=== PATIENT | female | born 1935 | race Caucasian/White ===

== ENCOUNTER 2018-01-20 12:57 | Inpatient (IN) | payer OTHER ==
[~2018-01-20] VITALS: Ht 162.6 cm; Wt 100.0 kg
[~2018-01-20 12:57] MED LIST: ALBUAER3 IN; ALLO100T PO; AML5T PO; ASPI81CH43 PO; DICY20TA66 PO; ESTR1TAB3 PO; ESTR1TAB5 PO; FLU05NSL; HYDR12.56 PO; HYDR50TA15 PO; LATA0.0015; LEVO200T46 PO; LOS50T PO; LOVA40TA46 PO; LOVA40TA72 PO; MET10T PO; METO-169 PO; METO-281 PO; MONT10TA34 PO; PANT1INJ3 PO; PANTOPRAZOLE; TIMO0.5S32; [UNRECOGNIZED DRUG - CODE]; [UNRECOGNIZED DRUG - CODE] PO; [UNRECOGNIZED DRUG - CODE] PO
[2018-01-20 13:51] LABS: Basophils # (auto) 0 uL; Basophils % (auto) 0.4 % (0.0-2.0); Eosinophils # (auto) 0.4 uL; Hematocrit 38.7 % (36.0-46.0); Hemoglobin 12.8 g/dL (12.2-16.2); Lymphocytes # (auto) 1.4 uL; Lymphocytes % (auto) 12.8 % (10.0-50.0); Mean Corpuscular Hemoglobin 29.6 pg (28.0-32.0); Mean Corpuscular Hgb Conc. 33.1 g/dL (32.0-36.0); Mean Corpuscular Volume 89.5 fL (80.0-100.0); Monocytes # (auto) 0.8 uL; Monocytes % (auto) 7.2 % (0.0-12.0); Neutrophils % (auto) 75.6 % (37.0-80.0); Nucleated Red Blood Cells % 0.1 %; Platelet Count (auto) 395 10^3/uL (140-450); Red Blood Cells 4.32 10^6/uL (4.0-5.20); Red Cell Distribution Width 13.9 % (11.8-14.3); White Blood Cell 10.6 10^3/uL (4.4-10.8)
[2018-01-20 14:25] LABS: BUN/Creatinine Ratio 17.6; Calcium 8.8 mg/dL (8.5-10.1); Potassium 4.3 mmol/L (3.5-5.1)
[2018-01-20 14:28] LABS: Bilirubin, Total 0.6 mg/dL (0.2-1.0); Total Protein 7.2 g/dL (6.4-8.2)
[2018-01-20 16:33] LABS: Urine Bacteria FEW /hpf (None Seen); Urine Blood Negative /uL (Negative); Urine Specific Gravity 1.011 (1.001-1.035); Urine WBC 105 /hpf (0 - 5)
[2018-01-20] MEDS ORDERED: traMADol HCL 50 MG TAB PO ONE (16:45)
[2018-01-20 17:06] LABS: INR 0.93 (0.9-1.15); Partial Thromboplastin Time 22.7 sec (23.78-33.04)
[2018-01-20] MEDS ORDERED: cefTRIAXone 1GM/50ML D5W 50 ML IV ONE (18:00)
[2018-01-20] MEDS ORDERED: MORPHINE SULFATE 4 MG/ML SYR/VIAL IV PRN ×2 (18:30)
[2018-01-20] MEDS ORDERED: METOCLOPRAMIDE HCL 10 MG TAB PO PRN (18:30)
[2018-01-20] MEDS ORDERED: PROMETHAZINE HCL 25 MG/ML 1ML IV PRN (18:30)
[2018-01-20] MEDS ORDERED: NITROGLYCERIN 0.4 MG SL TAB SL PRN (18:30)
[2018-01-20] MEDS ORDERED: TEMAZEPAM 15 MG CAP PO PRN (18:30)
[2018-01-20] MEDS ORDERED: LORazepam 0.5 MG TAB PO PRN (18:30)
[2018-01-20] MEDS: DICYCLOMINE HCL 10 MG CAP PO SCH (19:50)
[2018-01-20] MEDS: SODIUM CHLORIDE 0.9% 1,000 ML IV SCH (19:50)
[2018-01-20 22:00] VITALS: BP 127/52
[2018-01-20 22:51] VITALS: BP 127/52
[2018-01-21] MEDS: ATORVASTATIN 20 MG TAB PO SCH ×2 (00:02→21:21)
[2018-01-21] MEDS: DICYCLOMINE HCL 10 MG CAP PO SCH ×5 (00:02→21:25)
[2018-01-21] MEDS: LATANOPROST 0.005 % OPTH(EYE) SOL 2.5ML OP SCH ×2 (00:05→21:31)
[2018-01-21] MEDS: hydrALAZINE HCL 25 MG TAB PO SCH ×3 (00:19→21:21)
[2018-01-21 05:58] VITALS: BP 146/66
[2018-01-21] MEDS: SODIUM CHLORIDE 0.9% 1,000 ML IV SCH (06:51)
[2018-01-21 07:46] VITALS: BP 144/72
[2018-01-21] MEDS: ESTRADIOL 1 MG TAB PO SCH (09:51)
[2018-01-21] MEDS: PANTOPRAZOLE 40 MG TAB PO SCH (09:51)
[2018-01-21] MEDS: ALLOPURINOL 100 MG TAB PO SCH (09:52)
[2018-01-21] MEDS: TIMOLOL MAL 0.5% OPTH(EYE) SOL 5ML OP SCH (09:52)
[2018-01-21] MEDS: amLODIPine BESYLATE 5 MG TAB PO SCH (09:52)
[2018-01-21 11:58] VITALS: BP 154/66
[2018-01-21] MEDS ORDERED: VANCOMYCIN PER PHARMACY 0 MG IV SCH (14:45)
[2018-01-21] MEDS ORDERED: LORazepam 2MG/ML-1ML VIAL IV ONE (15:00)
[2018-01-21] MEDS ORDERED: VANCOMYCIN 1GM/250ML 250 ML IV ONE (15:00)
[2018-01-21 17:07] VITALS: BP 131/58
[2018-01-21] MEDS: cefTRIAXone 1GM/50ML D5W 50 ML IV SCH (17:44)
[2018-01-21 22:00] VITALS: BP 146/66
[2018-01-22 04:49] VITALS: BP 155/68
[2018-01-22] MEDS: SODIUM CHLORIDE 0.9% 1,000 ML IV SCH ×3 (05:08→12:54)
[2018-01-22] MEDS: DICYCLOMINE HCL 10 MG CAP PO SCH ×4 (05:22→22:25)
[2018-01-22 08:22] VITALS: BP 145/68
[2018-01-22] MEDS: amLODIPine BESYLATE 5 MG TAB PO SCH (09:25)
[2018-01-22] MEDS: PANTOPRAZOLE 40 MG TAB PO SCH (09:25)
[2018-01-22] MEDS: ENOXAPARIN SOD 30 MG/0.3 ML SYRINGE SC SCH (09:25)
[2018-01-22] MEDS: ALLOPURINOL 100 MG TAB PO SCH (09:25)
[2018-01-22] MEDS: TIMOLOL MAL 0.5% OPTH(EYE) SOL 5ML OP SCH (09:26)
[2018-01-22] MEDS: hydrALAZINE HCL 25 MG TAB PO SCH ×2 (10:04→22:25)
[2018-01-22] MEDS: ESTRADIOL 1 MG TAB PO SCH (10:15)
[2018-01-22 11:50] VITALS: BP 132/69
[2018-01-22] MEDS: COLCHICINE 0.6 MG CAP PO SCH (13:12)
[2018-01-22] MEDS: DOXYCYCLINE 100MG/250ML 250 ML IV SCH ×2 (13:13→22:25)
[2018-01-22] MEDS ORDERED: VANCOMYCIN 1GM/250ML 250 ML IV SCH (15:00)
[2018-01-22 16:59] VITALS: BP 130/59
[2018-01-22] MEDS: cefTRIAXone 1GM/50ML D5W 50 ML IV SCH (17:00)
[2018-01-22] MEDS: ACETAMINOPHEN 500 MG TAB PO PRN (19:44)
[2018-01-22 22:00] VITALS: BP 141/54
[2018-01-22] MEDS: ASCORBIC ACID 500 MG TAB PO SCH (22:24)
[2018-01-22] MEDS: ATORVASTATIN 20 MG TAB PO SCH (22:25)
[2018-01-22] MEDS: LATANOPROST 0.005 % OPTH(EYE) SOL 2.5ML OP SCH (22:30)
[2018-01-23 04:00] VITALS: BP 140/69
[2018-01-23 05:01] LABS: Albumin 2.6 g/dL (3.4-5.0); BUN/Creatinine Ratio 15.5; Calcium 8.7 mg/dL (8.5-10.1); Potassium 3.9 mmol/L (3.5-5.1)
[2018-01-23 05:04] LABS: Bilirubin, Total 0.4 mg/dL (0.2-1.0); Total Protein 6.8 g/dL (6.4-8.2)
[2018-01-23] MEDS: DICYCLOMINE HCL 10 MG CAP PO SCH ×4 (06:38→21:37)
[2018-01-23] MEDS: SODIUM CHLORIDE 0.9% 1,000 ML IV SCH (06:39)
[2018-01-23 08:24] VITALS: BP 144/71
[2018-01-23] MEDS: COLCHICINE 0.6 MG CAP PO SCH (10:06)
[2018-01-23] MEDS: DOXYCYCLINE 100MG/250ML 250 ML IV SCH ×2 (10:06→21:37)
[2018-01-23] MEDS: MULTIPLE VITAMINS W/ MINERALS TAB PO SCH (10:06)
[2018-01-23] MEDS: PANTOPRAZOLE 40 MG TAB PO SCH (10:06)
[2018-01-23] MEDS: TIMOLOL MAL 0.5% OPTH(EYE) SOL 5ML OP SCH (10:06)
[2018-01-23] MEDS: ENOXAPARIN SOD 30 MG/0.3 ML SYRINGE SC SCH (10:07)
[2018-01-23] MEDS: ALLOPURINOL 100 MG TAB PO SCH (10:07)
[2018-01-23] MEDS: ASCORBIC ACID 500 MG TAB PO SCH ×2 (10:07→21:38)
[2018-01-23] MEDS: amLODIPine BESYLATE 5 MG TAB PO SCH (10:08)
[2018-01-23] MEDS: hydrALAZINE HCL 25 MG TAB PO SCH ×2 (10:09→21:38)
[2018-01-23] MEDS: ESTRADIOL 1 MG TAB PO SCH (10:18)
[2018-01-23 12:39] VITALS: BP 152/61
[2018-01-23] MEDS: ACETAMINOPHEN 500 MG TAB PO PRN (15:11)
[2018-01-23 16:32] VITALS: BP 145/54
[2018-01-23] MEDS: cefTRIAXone 1GM/50ML D5W 50 ML IV SCH (18:03)
[2018-01-23] MEDS: HYDROcodone-ACET 5/325MG TAB PO PRN (19:32)
[2018-01-23] MEDS: LATANOPROST 0.005 % OPTH(EYE) SOL 2.5ML OP SCH (21:37)
[2018-01-23] MEDS: ATORVASTATIN 20 MG TAB PO SCH (21:38)
[2018-01-23 22:00] VITALS: BP 153/83
[2018-01-24 04:37] VITALS: BP 146/70
[2018-01-24 05:25] LABS: Basophils # (auto) 0 uL; Basophils % (auto) 0.5 % (0.0-2.0); Eosinophils # (auto) 0.4 uL; Eosinophils % (auto) 4.3 % (0.0-7.0); Hematocrit 34.6 % (36.0-46.0); Hemoglobin 11.8 g/dL (12.2-16.2); Lymphocytes # (auto) 1.4 uL; Lymphocytes % (auto) 16.9 % (10.0-50.0); Mean Corpuscular Hemoglobin 29.9 pg (28.0-32.0); Mean Corpuscular Hgb Conc. 34.2 g/dL (32.0-36.0); Mean Corpuscular Volume 87.4 fL (80.0-100.0); Monocytes # (auto) 0.6 uL; Neutrophils # (auto) 5.8 uL; Neutrophils % (auto) 71.3 % (37.0-80.0); Platelet Count (auto) 389 10^3/uL (140-450); Red Blood Cells 3.96 10^6/uL (4.0-5.20); Red Cell Distribution Width 13.4 % (11.8-14.3); White Blood Cell 8.2 10^3/uL (4.4-10.8)
[2018-01-24] MEDS: DICYCLOMINE HCL 10 MG CAP PO SCH ×4 (05:41→21:58)
[2018-01-24] MEDS: HYDROcodone-ACET 5/325MG TAB PO PRN ×3 (05:42→21:59)
[2018-01-24 05:43] LABS: Potassium 3.9 mmol/L (3.5-5.1)
[2018-01-24 05:50] LABS: Albumin 2.6 g/dL (3.4-5.0); BUN/Creatinine Ratio 16.5; Bilirubin, Total 0.4 mg/dL (0.2-1.0); Calcium 8.7 mg/dL (8.5-10.1); Total Protein 6.6 g/dL (6.4-8.2)
[2018-01-24 08:00] VITALS: BP 136/60
[2018-01-24] MEDS: ESTRADIOL 1 MG TAB PO SCH (10:00)
[2018-01-24] MEDS: DOXYCYCLINE 100MG/250ML 250 ML IV SCH (10:16)
[2018-01-24] MEDS: TIMOLOL MAL 0.5% OPTH(EYE) SOL 5ML OP SCH (10:17)
[2018-01-24] MEDS: COLCHICINE 0.6 MG CAP PO SCH (10:17)
[2018-01-24] MEDS: MULTIPLE VITAMINS W/ MINERALS TAB PO SCH (10:17)
[2018-01-24] MEDS: PANTOPRAZOLE 40 MG TAB PO SCH (10:17)
[2018-01-24] MEDS: ASCORBIC ACID 500 MG TAB PO SCH ×2 (10:18→21:58)
[2018-01-24] MEDS: ENOXAPARIN SOD 30 MG/0.3 ML SYRINGE SC SCH (10:18)
[2018-01-24] MEDS: ALLOPURINOL 100 MG TAB PO SCH (10:18)
[2018-01-24] MEDS: hydrALAZINE HCL 25 MG TAB PO SCH ×2 (10:19→21:58)
[2018-01-24] MEDS: amLODIPine BESYLATE 5 MG TAB PO SCH (10:20)
[2018-01-24] MEDS ORDERED: VANCOMYCIN PER PHARMACY 0 MG IV SCH (11:15)
[2018-01-24 11:58] VITALS: BP 136/50
[2018-01-24] MEDS: SODIUM CHLORIDE 0.9% 1,000 ML IV SCH (12:29)
[2018-01-24] MEDS: CIPROFLOXACIN HCL 500 MG TAB PO SCH ×2 (14:00→22:00)
[2018-01-24 15:15] LABS: Hematocrit 33.2 % (36.0-46.0); Hemoglobin 11.3 g/dL (12.2-16.2)
[2018-01-24] MEDS: VANCOMYCIN 750 MG in D5W 5% 250 ML IV SCH (15:50)
[2018-01-24 16:31] VITALS: BP 126/80
[2018-01-24 21:39] VITALS: BP 140/62
[2018-01-24] MEDS: LATANOPROST 0.005 % OPTH(EYE) SOL 2.5ML OP SCH (21:57)
[2018-01-24] MEDS: ATORVASTATIN 20 MG TAB PO SCH (21:58)
[2018-01-24 23:11] LABS: Hematocrit 32.3 % (36.0-46.0); Hemoglobin 11.2 g/dL (12.2-16.2)
[2018-01-25 04:33] VITALS: BP 142/64
[2018-01-25 04:42] LABS: Basophils # (auto) 0.1 uL; Basophils % (auto) 0.8 % (0.0-2.0); Eosinophils # (auto) 0.4 uL; Eosinophils % (auto) 5.9 % (0.0-7.0); Hemoglobin 11.5 g/dL (12.2-16.2); Lymphocytes # (auto) 1.3 uL; Lymphocytes % (auto) 19.6 % (10.0-50.0); Mean Corpuscular Hemoglobin 29.8 pg (28.0-32.0); Mean Corpuscular Hgb Conc. 33.9 g/dL (32.0-36.0); Mean Corpuscular Volume 87.9 fL (80.0-100.0); Monocytes # (auto) 0.5 uL; Monocytes % (auto) 7.5 % (0.0-12.0); Neutrophils # (auto) 4.4 uL; Neutrophils % (auto) 66.2 % (37.0-80.0); Nucleated Red Blood Cells % 0.1 %; Platelet Count (auto) 384 10^3/uL (140-450); Red Blood Cells 3.87 10^6/uL (4.0-5.20); Red Cell Distribution Width 13.7 % (11.8-14.3); White Blood Cell 6.7 10^3/uL (4.4-10.8)
[2018-01-25] MEDS: SODIUM CHLORIDE 0.9% 1,000 ML IV SCH ×2 (04:48→14:25)
[2018-01-25 05:07] LABS: Albumin 2.5 g/dL (3.4-5.0); BUN/Creatinine Ratio 12.8; Calcium 8.4 mg/dL (8.5-10.1)
[2018-01-25 05:10] LABS: Bilirubin, Total 0.3 mg/dL (0.2-1.0); Total Protein 6.1 g/dL (6.4-8.2)
[2018-01-25] MEDS: DICYCLOMINE HCL 10 MG CAP PO SCH ×4 (06:37→21:37)
[2018-01-25 07:42] VITALS: BP 136/69
[2018-01-25] MEDS: CIPROFLOXACIN HCL 500 MG TAB PO SCH ×2 (09:45→21:38)
[2018-01-25] MEDS: TIMOLOL MAL 0.5% OPTH(EYE) SOL 5ML OP SCH (09:45)
[2018-01-25] MEDS: ENOXAPARIN SOD 30 MG/0.3 ML SYRINGE SC SCH (09:46)
[2018-01-25] MEDS: ASCORBIC ACID 500 MG TAB PO SCH ×2 (09:46→21:38)
[2018-01-25] MEDS: PANTOPRAZOLE 40 MG TAB PO SCH (09:46)
[2018-01-25] MEDS: COLCHICINE 0.6 MG CAP PO SCH (09:46)
[2018-01-25] MEDS: ALLOPURINOL 100 MG TAB PO SCH (09:46)
[2018-01-25] MEDS: ESTRADIOL 1 MG TAB PO SCH (09:46)
[2018-01-25] MEDS: amLODIPine BESYLATE 5 MG TAB PO SCH (09:47)
[2018-01-25] MEDS: MULTIPLE VITAMINS W/ MINERALS TAB PO SCH (09:47)
[2018-01-25] MEDS: hydrALAZINE HCL 25 MG TAB PO SCH ×2 (09:48→21:37)
[2018-01-25] MEDS ORDERED: MORPHINE SULFATE 4 MG/ML SYR/VIAL IV PRN (11:00)
[2018-01-25] MEDS: ACETAMINOPHEN 500 MG TAB PO PRN (11:03)
[2018-01-25 11:57] VITALS: BP 131/51
[2018-01-25 16:42] VITALS: BP 135/64
[2018-01-25] MEDS: VANCOMYCIN 750 MG in D5W 5% 250 ML IV SCH (17:01)
[2018-01-25] MEDS: HYDROcodone-ACET 5/325MG TAB PO PRN ×2 (17:28→23:24)
[2018-01-25] MEDS: LATANOPROST 0.005 % OPTH(EYE) SOL 2.5ML OP SCH (21:37)
[2018-01-25] MEDS: ATORVASTATIN 20 MG TAB PO SCH (21:38)
[2018-01-25 22:00] VITALS: BP 138/55
[2018-01-26] MEDS: SODIUM CHLORIDE 0.9% 1,000 ML IV SCH ×2 (03:30→18:55)
[2018-01-26 05:04] VITALS: BP 137/64
[2018-01-26 05:23] LABS: BUN/Creatinine Ratio 11.7; Calcium 8.2 mg/dL (8.5-10.1); Potassium 4.2 mmol/L (3.5-5.1)
[2018-01-26] MEDS: HYDROcodone-ACET 5/325MG TAB PO PRN ×2 (05:41→12:16)
[2018-01-26] MEDS: DICYCLOMINE HCL 10 MG CAP PO SCH ×4 (05:41→22:20)
[2018-01-26 08:00] VITALS: BP 148/65
[2018-01-26] MEDS: ESTRADIOL 1 MG TAB PO SCH (09:51)
[2018-01-26] MEDS: COLCHICINE 0.6 MG CAP PO SCH (09:51)
[2018-01-26] MEDS: amLODIPine BESYLATE 5 MG TAB PO SCH (09:52)
[2018-01-26] MEDS: ALLOPURINOL 100 MG TAB PO SCH (09:52)
[2018-01-26] MEDS: CIPROFLOXACIN HCL 500 MG TAB PO SCH ×2 (09:53→22:20)
[2018-01-26] MEDS: ASCORBIC ACID 500 MG TAB PO SCH ×2 (09:53→22:21)
[2018-01-26] MEDS: PANTOPRAZOLE 40 MG TAB PO SCH (09:53)
[2018-01-26] MEDS: hydrALAZINE HCL 25 MG TAB PO SCH ×2 (09:54→22:20)
[2018-01-26] MEDS: ENOXAPARIN SOD 30 MG/0.3 ML SYRINGE SC SCH (09:54)
[2018-01-26] MEDS: MULTIPLE VITAMINS W/ MINERALS TAB PO SCH (09:54)
[2018-01-26] MEDS: TIMOLOL MAL 0.5% OPTH(EYE) SOL 5ML OP SCH (09:59)
[2018-01-26 13:07] VITALS: BP 154/64
[2018-01-26] MEDS: VANCOMYCIN 750 MG in D5W 5% 250 ML IV SCH (14:17)
[2018-01-26 16:35] VITALS: BP 146/77
[2018-01-26 22:00] VITALS: BP 157/65
[2018-01-26] MEDS ORDERED: ENOXAPARIN SOD 80 MG/0.8ML SYRINGE SC SCH (22:00)
[2018-01-26] MEDS: LATANOPROST 0.005 % OPTH(EYE) SOL 2.5ML OP SCH (22:19)
[2018-01-26] MEDS: ATORVASTATIN 20 MG TAB PO SCH (22:21)
[2018-01-26] MEDS: BISACODYL 5 MG EC TAB PO SCH (22:21)
[2018-01-27] MEDS: HYDROcodone-ACET 5/325MG TAB PO PRN (01:32)
[2018-01-27 05:00] VITALS: BP 153/74
[2018-01-27] MEDS: SODIUM CHLORIDE 0.9% 1,000 ML IV SCH ×2 (05:11→19:30)
[2018-01-27] MEDS: DICYCLOMINE HCL 10 MG CAP PO SCH ×4 (05:11→22:46)
[2018-01-27 06:06] LABS: Basophils # (auto) 0 uL; Basophils % (auto) 0.5 % (0.0-2.0); Eosinophils # (auto) 0.4 uL; Eosinophils % (auto) 5.1 % (0.0-7.0); Hematocrit 35.5 % (36.0-46.0); Hemoglobin 12.2 g/dL (12.2-16.2); Lymphocytes # (auto) 1.2 uL; Lymphocytes % (auto) 16.9 % (10.0-50.0); Mean Corpuscular Hgb Conc. 34.5 g/dL (32.0-36.0); Mean Corpuscular Volume 87.1 fL (80.0-100.0); Monocytes # (auto) 0.5 uL; Monocytes % (auto) 7.2 % (0.0-12.0); Neutrophils # (auto) 5.1 uL; Neutrophils % (auto) 70.3 % (37.0-80.0); Nucleated Red Blood Cells % 0.1 %; Platelet Count (auto) 435 10^3/uL (140-450); Red Blood Cells 4.08 10^6/uL (4.0-5.20); Red Cell Distribution Width 13.8 % (11.8-14.3); White Blood Cell 7.3 10^3/uL (4.4-10.8)
[2018-01-27 06:10] LABS: Calcium 9.1 mg/dL (8.5-10.1); Potassium 4.1 mmol/L (3.5-5.1)
[2018-01-27 06:12] LABS: BUN/Creatinine Ratio 10.5
[2018-01-27 08:00] VITALS: BP 155/52
[2018-01-27 09:00] VITALS: BP 155/50
[2018-01-27] MEDS: amLODIPine BESYLATE 5 MG TAB PO SCH (11:23)
[2018-01-27] MEDS: MULTIPLE VITAMINS W/ MINERALS TAB PO SCH (11:23)
[2018-01-27] MEDS: COLCHICINE 0.6 MG CAP PO SCH (11:23)
[2018-01-27] MEDS: CIPROFLOXACIN HCL 500 MG TAB PO SCH ×2 (11:23→22:30)
[2018-01-27] MEDS: hydrALAZINE HCL 25 MG TAB PO SCH ×2 (11:24→22:33)
[2018-01-27] MEDS: ESTRADIOL 1 MG TAB PO SCH (11:24)
[2018-01-27] MEDS: ASCORBIC ACID 500 MG TAB PO SCH ×2 (11:24→22:30)
[2018-01-27] MEDS: ALLOPURINOL 100 MG TAB PO SCH (11:24)
[2018-01-27] MEDS: PANTOPRAZOLE 40 MG TAB PO SCH (11:24)
[2018-01-27] MEDS: TIMOLOL MAL 0.5% OPTH(EYE) SOL 5ML OP SCH (11:26)
[2018-01-27 13:00] VITALS: BP 122/65
[2018-01-27] MEDS: VANCOMYCIN 750 MG in D5W 5% 250 ML IV SCH (14:00)
[2018-01-27] MEDS ORDERED: FLUCONAZOLE 100 MG TAB PO ONE (14:45)
[2018-01-27] MEDS: RIVAROXABAN 15 MG TAB PO SCH ×2 (14:52→22:31)
[2018-01-27 16:42] VITALS: BP 121/66
[2018-01-27] MEDS: ACETAMINOPHEN 500 MG TAB PO PRN (19:48)
[2018-01-27] MEDS ORDERED: PATIENTS OWN MEDICATION (XARELTO 15 MG) PO SCH (22:00)
[2018-01-27 22:10] VITALS: BP 161/69
[2018-01-27] MEDS: ATORVASTATIN 20 MG TAB PO SCH (22:30)
[2018-01-27] MEDS: BISACODYL 5 MG EC TAB PO SCH (22:31)
[2018-01-27] MEDS: LATANOPROST 0.005 % OPTH(EYE) SOL 2.5ML OP SCH (22:33)
[2018-01-28 05:00] VITALS: BP 134/67
[2018-01-28] MEDS: DICYCLOMINE HCL 10 MG CAP PO SCH ×4 (05:38→22:00)
[2018-01-28] MEDS: HYDROcodone-ACET 5/325MG TAB PO PRN ×4 (07:50→21:03)
[2018-01-28] MEDS: SODIUM CHLORIDE 0.9% 1,000 ML IV SCH ×2 (08:50→22:10)
[2018-01-28 09:00] VITALS: BP 134/72
[2018-01-28] MEDS: ESTRADIOL 1 MG TAB PO SCH (10:00)
[2018-01-28] MEDS: RIVAROXABAN 15 MG TAB PO SCH ×2 (10:00→22:00)
[2018-01-28] MEDS: TIMOLOL MAL 0.5% OPTH(EYE) SOL 5ML OP SCH (10:00)
[2018-01-28 13:00] VITALS: BP 151/88
[2018-01-28] MEDS: PANTOPRAZOLE 40 MG TAB PO SCH (13:29)
[2018-01-28] MEDS: CIPROFLOXACIN HCL 500 MG TAB PO SCH ×2 (13:29→21:59)
[2018-01-28] MEDS: amLODIPine BESYLATE 5 MG TAB PO SCH (13:30)
[2018-01-28] MEDS: MULTIPLE VITAMINS W/ MINERALS TAB PO SCH (13:30)
[2018-01-28] MEDS: hydrALAZINE HCL 25 MG TAB PO SCH ×2 (13:31→22:00)
[2018-01-28] MEDS: FLUCONAZOLE 100 MG TAB PO SCH (13:31)
[2018-01-28] MEDS: ALLOPURINOL 100 MG TAB PO SCH (13:32)
[2018-01-28] MEDS: ASCORBIC ACID 500 MG TAB PO SCH ×2 (13:32→21:59)
[2018-01-28] MEDS: COLCHICINE 0.6 MG CAP PO SCH (13:33)
[2018-01-28] MEDS: VANCOMYCIN 750 MG in D5W 5% 250 ML IV SCH (14:00)
[2018-01-28] MEDS ORDERED: THROAT LOZENGES(CEPASTAT) MT PRN (14:45)
[2018-01-28] MEDS ORDERED: LORazepam 0.5 MG TAB PO PRN (15:00)
[2018-01-28] MEDS ORDERED: TEMAZEPAM 15 MG CAP PO PRN (15:00)
[2018-01-28 17:00] VITALS: BP 134/64
[2018-01-28] MEDS: ATORVASTATIN 20 MG TAB PO SCH (21:59)
[2018-01-28 22:00] VITALS: BP 158/50
[2018-01-28] MEDS: LATANOPROST 0.005 % OPTH(EYE) SOL 2.5ML OP SCH (22:00)
[2018-01-28] MEDS: BISACODYL 5 MG EC TAB PO SCH (22:00)
[2018-01-29 04:50] LABS: BUN/Creatinine Ratio 10.6; Calcium 8.7 mg/dL (8.5-10.1); Potassium 3.8 mmol/L (3.5-5.1)
[2018-01-29 05:00] VITALS: BP 121/59
[2018-01-29] MEDS: DICYCLOMINE HCL 10 MG CAP PO SCH ×4 (05:36→23:01)
[2018-01-29 09:00] VITALS: BP 123/62
[2018-01-29] MEDS: COLCHICINE 0.6 MG CAP PO SCH (09:38)
[2018-01-29] MEDS: ESTRADIOL 1 MG TAB PO SCH (09:38)
[2018-01-29] MEDS: LATANOPROST 0.005 % OPTH(EYE) SOL 2.5ML OP SCH (09:38)
[2018-01-29] MEDS: ALLOPURINOL 100 MG TAB PO SCH (09:39)
[2018-01-29] MEDS: MULTIPLE VITAMINS W/ MINERALS TAB PO SCH (09:39)
[2018-01-29] MEDS: FLUCONAZOLE 100 MG TAB PO SCH (09:39)
[2018-01-29] MEDS: hydrALAZINE HCL 25 MG TAB PO SCH ×2 (09:39→22:32)
[2018-01-29] MEDS: CIPROFLOXACIN HCL 500 MG TAB PO SCH ×2 (09:40→22:33)
[2018-01-29] MEDS: amLODIPine BESYLATE 5 MG TAB PO SCH (09:40)
[2018-01-29] MEDS: ASCORBIC ACID 500 MG TAB PO SCH ×2 (09:40→22:33)
[2018-01-29] MEDS: PANTOPRAZOLE 40 MG TAB PO SCH (09:40)
[2018-01-29] MEDS: TIMOLOL MAL 0.5% OPTH(EYE) SOL 5ML OP SCH (09:41)
[2018-01-29] MEDS: RIVAROXABAN 15 MG TAB PO SCH ×2 (09:41→22:33)
[2018-01-29] MEDS ORDERED: SODIUM CHLORIDE 0.9% 1,000 ML IV ONE (12:00)
[2018-01-29 13:00] VITALS: BP 123/43
[2018-01-29] MEDS: VANCOMYCIN 750 MG in D5W 5% 250 ML IV SCH (14:23)
[2018-01-29] MEDS ORDERED: BISACODYL 5 MG EC TAB PO PRN (15:00)
[2018-01-29 17:00] VITALS: BP 129/58
[2018-01-29] MEDS: SODIUM CHLORIDE 0.9% 1,000 ML IV SCH (17:21)
[2018-01-29 20:00] VITALS: BP 124/69
[2018-01-29 22:00] VITALS: BP 114/51
[2018-01-29] MEDS: MORPHINE SULFATE 4 MG/ML SYR/VIAL IV PRN (22:24)
[2018-01-29] MEDS: ATORVASTATIN 20 MG TAB PO SCH (22:33)
[2018-01-30] MEDS: SODIUM CHLORIDE 0.9% 1,000 ML IV SCH ×2 (00:50→14:58)
[2018-01-30 05:00] VITALS: BP 130/59
[2018-01-30] MEDS: DICYCLOMINE HCL 10 MG CAP PO SCH ×4 (06:00→23:20)
[2018-01-30 06:02] LABS: Potassium 3.8 mmol/L (3.5-5.1)
[2018-01-30 06:11] LABS: BUN/Creatinine Ratio 9.6; Calcium 8.5 mg/dL (8.5-10.1)
[2018-01-30 08:46] VITALS: BP 124/56
[2018-01-30] MEDS: PANTOPRAZOLE 40 MG TAB PO SCH (10:17)
[2018-01-30] MEDS: FLUCONAZOLE 100 MG TAB PO SCH (10:17)
[2018-01-30] MEDS: CIPROFLOXACIN HCL 500 MG TAB PO SCH ×2 (10:17→23:20)
[2018-01-30] MEDS: RIVAROXABAN 15 MG TAB PO SCH ×2 (10:17→22:00)
[2018-01-30] MEDS: ESTRADIOL 1 MG TAB PO SCH (10:17)
[2018-01-30] MEDS: hydrALAZINE HCL 25 MG TAB PO SCH ×2 (10:18→22:00)
[2018-01-30] MEDS: ALLOPURINOL 100 MG TAB PO SCH (10:18)
[2018-01-30] MEDS: ASCORBIC ACID 500 MG TAB PO SCH ×2 (10:18→22:00)
[2018-01-30] MEDS: amLODIPine BESYLATE 5 MG TAB PO SCH (10:19)
[2018-01-30] MEDS: MULTIPLE VITAMINS W/ MINERALS TAB PO SCH (10:19)
[2018-01-30] MEDS: TIMOLOL MAL 0.5% OPTH(EYE) SOL 5ML OP SCH (10:20)
[2018-01-30] MEDS: ACETAMINOPHEN 500 MG TAB PO PRN (10:20)
[2018-01-30 12:00] VITALS: BP 119/56
[2018-01-30] MEDS: VANCOMYCIN 750 MG in D5W 5% 250 ML IV SCH (14:58)
[2018-01-30 16:34] VITALS: BP 127/55
[2018-01-30] MEDS: MORPHINE SULFATE 4 MG/ML SYR/VIAL IV PRN (19:56)
[2018-01-30 20:00] VITALS: BP 124/56
[2018-01-30 22:00] VITALS: BP 125/64
[2018-01-30] MEDS: LATANOPROST 0.005 % OPTH(EYE) SOL 2.5ML OP SCH (22:00)
[2018-01-30] MEDS: ATORVASTATIN 20 MG TAB PO SCH (22:00)
[2018-01-31] MEDS: TIMOLOL MAL 0.5% OPTH(EYE) SOL 5ML OP SCH (03:55)
[2018-01-31] MEDS: SODIUM CHLORIDE 0.9% 1,000 ML IV SCH ×3 (03:55→22:05)
[2018-01-31 05:00] VITALS: BP 151/57
[2018-01-31] MEDS: MORPHINE SULFATE 4 MG/ML SYR/VIAL IV PRN (05:15)
[2018-01-31] MEDS: DICYCLOMINE HCL 10 MG CAP PO SCH ×4 (06:43→22:10)
[2018-01-31 08:00] VITALS: BP 143/63
[2018-01-31 08:56] VITALS: BP 143/63
[2018-01-31] MEDS: PANTOPRAZOLE 40 MG TAB PO SCH (09:50)
[2018-01-31] MEDS: MULTIPLE VITAMINS W/ MINERALS TAB PO SCH (09:50)
[2018-01-31] MEDS: FLUCONAZOLE 100 MG TAB PO SCH (09:51)
[2018-01-31] MEDS: amLODIPine BESYLATE 5 MG TAB PO SCH (09:51)
[2018-01-31] MEDS: ASCORBIC ACID 500 MG TAB PO SCH ×2 (09:51→22:05)
[2018-01-31] MEDS: hydrALAZINE HCL 25 MG TAB PO SCH ×2 (09:51→22:05)
[2018-01-31] MEDS: ALLOPURINOL 100 MG TAB PO SCH (09:51)
[2018-01-31] MEDS: RIVAROXABAN 15 MG TAB PO SCH ×2 (09:52→22:04)
[2018-01-31] MEDS: CIPROFLOXACIN HCL 500 MG TAB PO SCH ×2 (09:52→22:04)
[2018-01-31] MEDS: ESTRADIOL 1 MG TAB PO SCH (10:00)
[2018-01-31 12:03] VITALS: BP 145/66
[2018-01-31] MEDS: ACETAMINOPHEN 500 MG TAB PO PRN ×2 (12:53→20:34)
[2018-01-31] MEDS: VANCOMYCIN 750 MG in D5W 5% 250 ML IV SCH (15:09)
[2018-01-31 16:40] VITALS: BP 126/51
[2018-01-31 21:44] VITALS: BP 138/58
[2018-01-31] MEDS: ATORVASTATIN 20 MG TAB PO SCH (22:04)
[2018-01-31] MEDS: LATANOPROST 0.005 % OPTH(EYE) SOL 2.5ML OP SCH (22:05)
[2018-02-01 04:30] VITALS: BP 145/79
[2018-02-01] MEDS: DICYCLOMINE HCL 10 MG CAP PO SCH ×4 (05:46→22:21)
[2018-02-01 08:00] VITALS: BP 143/68
[2018-02-01 09:57] VITALS: BP 143/68
[2018-02-01] MEDS: FLUCONAZOLE 100 MG TAB PO SCH (10:49)
[2018-02-01] MEDS: ASCORBIC ACID 500 MG TAB PO SCH ×2 (10:49→22:21)
[2018-02-01] MEDS: MULTIPLE VITAMINS W/ MINERALS TAB PO SCH (10:51)
[2018-02-01] MEDS: PANTOPRAZOLE 40 MG TAB PO SCH (10:51)
[2018-02-01] MEDS: ALLOPURINOL 100 MG TAB PO SCH (10:52)
[2018-02-01] MEDS: amLODIPine BESYLATE 5 MG TAB PO SCH (10:53)
[2018-02-01] MEDS: CIPROFLOXACIN HCL 500 MG TAB PO SCH ×2 (10:54→22:21)
[2018-02-01] MEDS: hydrALAZINE HCL 25 MG TAB PO SCH ×2 (10:54→22:22)
[2018-02-01 11:24] VITALS: BP 141/69
[2018-02-01] MEDS: RIVAROXABAN 15 MG TAB PO SCH ×2 (11:41→22:22)
[2018-02-01] MEDS: ESTRADIOL 1 MG TAB PO SCH (12:01)
[2018-02-01] MEDS: TIMOLOL MAL 0.5% OPTH(EYE) SOL 5ML OP SCH (12:02)
[2018-02-01] MEDS: VANCOMYCIN 750 MG in D5W 5% 250 ML IV SCH (15:22)
[2018-02-01 16:09] VITALS: BP 120/51
[2018-02-01] MEDS: SODIUM CHLORIDE 0.9% 1,000 ML IV SCH (19:30)
[2018-02-01 22:08] VITALS: BP 152/64
[2018-02-01] MEDS: ATORVASTATIN 20 MG TAB PO SCH (22:21)
[2018-02-01] MEDS: LATANOPROST 0.005 % OPTH(EYE) SOL 2.5ML OP SCH (22:22)
[2018-02-02] MEDS: SODIUM CHLORIDE 0.9% 1,000 ML IV SCH (03:22)
[2018-02-02 05:04] VITALS: BP 130/47
[2018-02-02] MEDS: DICYCLOMINE HCL 10 MG CAP PO SCH ×4 (05:27→23:27)
[2018-02-02 08:00] VITALS: BP 143/68
[2018-02-02 10:12] VITALS: BP 146/59
[2018-02-02] MEDS: RIVAROXABAN 15 MG TAB PO SCH ×2 (10:44→23:29)
[2018-02-02] MEDS: MULTIPLE VITAMINS W/ MINERALS TAB PO SCH (10:44)
[2018-02-02] MEDS: ESTRADIOL 1 MG TAB PO SCH (10:44)
[2018-02-02] MEDS: ASCORBIC ACID 500 MG TAB PO SCH ×2 (10:45→23:29)
[2018-02-02] MEDS: PANTOPRAZOLE 40 MG TAB PO SCH (10:45)
[2018-02-02] MEDS: FLUCONAZOLE 100 MG TAB PO SCH (10:45)
[2018-02-02] MEDS: CIPROFLOXACIN HCL 500 MG TAB PO SCH ×2 (10:46→23:28)
[2018-02-02] MEDS: amLODIPine BESYLATE 5 MG TAB PO SCH (10:46)
[2018-02-02] MEDS: ALLOPURINOL 100 MG TAB PO SCH (10:47)
[2018-02-02] MEDS: TIMOLOL MAL 0.5% OPTH(EYE) SOL 5ML OP SCH (10:56)
[2018-02-02 11:31] LABS: Albumin 2.5 g/dL (3.4-5.0); Calcium 8.1 mg/dL (8.5-10.1); Potassium 3.7 mmol/L (3.5-5.1)
[2018-02-02 11:33] LABS: Bilirubin, Total 0.4 mg/dL (0.2-1.0); Total Protein 5.7 g/dL (6.4-8.2)
[2018-02-02] MEDS: hydrALAZINE HCL 25 MG TAB PO SCH ×2 (11:36→23:22)
[2018-02-02] MEDS: LINEZOLID 600MG TABLET PO SCH ×2 (11:37→23:29)
[2018-02-02 11:40] LABS: Basophils # (auto) 0.1 uL; Basophils % (auto) 0.7 % (0.0-2.0); Eosinophils # (auto) 0.6 uL; Eosinophils % (auto) 6.5 % (0.0-7.0); Hematocrit 31.5 % (36.0-46.0); Hemoglobin 10.8 g/dL (12.2-16.2); Lymphocytes # (auto) 1.3 uL; Lymphocytes % (auto) 14.5 % (10.0-50.0); Mean Corpuscular Hemoglobin 29.9 pg (28.0-32.0); Mean Corpuscular Hgb Conc. 34.3 g/dL (32.0-36.0); Mean Corpuscular Volume 87.4 fL (80.0-100.0); Monocytes # (auto) 0.5 uL; Monocytes % (auto) 5.3 % (0.0-12.0); Neutrophils # (auto) 6.4 uL; Platelet Count (auto) 361 10^3/uL (140-450); Red Blood Cells 3.61 10^6/uL (4.0-5.20); Red Cell Distribution Width 14.3 % (11.8-14.3); White Blood Cell 8.8 10^3/uL (4.4-10.8)
[2018-02-02 13:08] VITALS: BP 129/63
[2018-02-02] MEDS ORDERED: TUBERCULIN PPD 5 UNIT/0.1 ML ID ONE (13:30)
[2018-02-02] MEDS: ACETAMINOPHEN 500 MG TAB PO PRN (14:22)
[2018-02-02 17:00] VITALS: BP 123/57
[2018-02-02 22:00] VITALS: BP 127/61
[2018-02-02] MEDS: LATANOPROST 0.005 % OPTH(EYE) SOL 2.5ML OP SCH (23:22)
[2018-02-02] MEDS: ATORVASTATIN 20 MG TAB PO SCH (23:28)
[2018-02-03 04:19] VITALS: BP 130/59
[2018-02-03] MEDS: DICYCLOMINE HCL 10 MG CAP PO SCH ×2 (06:31→12:00)
[2018-02-03 09:03] VITALS: BP 151/58
[2018-02-03] MEDS: TIMOLOL MAL 0.5% OPTH(EYE) SOL 5ML OP SCH (10:00)
[2018-02-03] MEDS: ESTRADIOL 1 MG TAB PO SCH (10:00)
[2018-02-03] MEDS ORDERED: FLUC100T34 PO (10:03)
[2018-02-03] MEDS ORDERED: CIP500T PO (10:03)
[2018-02-03] MEDS ORDERED: RIV20T PO (10:03)
[2018-02-03] MEDS: LINEZOLID 600MG TABLET PO SCH (10:18)
[2018-02-03] MEDS: RIVAROXABAN 15 MG TAB PO SCH (10:19)
[2018-02-03] MEDS: ASCORBIC ACID 500 MG TAB PO SCH (10:20)
[2018-02-03] MEDS: FLUCONAZOLE 100 MG TAB PO SCH (10:20)
[2018-02-03] MEDS: MULTIPLE VITAMINS W/ MINERALS TAB PO SCH (10:20)
[2018-02-03] MEDS: ALLOPURINOL 100 MG TAB PO SCH (10:20)
[2018-02-03] MEDS: PANTOPRAZOLE 40 MG TAB PO SCH (10:20)
[2018-02-03] MEDS: CIPROFLOXACIN HCL 500 MG TAB PO SCH (10:20)
[2018-02-03] MEDS: hydrALAZINE HCL 25 MG TAB PO SCH (10:21)
[2018-02-03] MEDS: amLODIPine BESYLATE 5 MG TAB PO SCH (10:21)
[2018-02-17] MEDS ORDERED: RIVAROXABAN 20 MG TAB PO SCH (10:00)
== END 2018-02-03 15:15 | disposition hospice, home (50) | DRG 698 ==
LOC: ER 12:57 → EDBD 12:57 → TELE 12:58 → MERGE 12:58 → TELE-CENTR 21:57 → CENTRAL 01-21 14:54
PROVIDERS: ADMIT Internal Medicine; ATTEND Internal Medicine
DX: T83.511A Infection and inflammatory reaction due to indwelling urethral catheter, initial encounter (principal); L89.153 Pressure ulcer of sacral region, stage 3; L89.323 Pressure ulcer of left buttock, stage 3; N17.0 Acute kidney failure with tubular necrosis; E87.1 Hypo-osmolality and hyponatremia; M48.56XA Collapsed vertebra, not elsewhere classified, lumbar region, initial encounter for fracture; E44.1 Mild protein-calorie malnutrition; E44.0 Moderate protein-calorie malnutrition; I82.601 Acute embolism and thrombosis of unspecified veins of right upper extremity; I82.890 Acute embolism and thrombosis of other specified veins; N18.4 Chronic kidney disease, stage 4 (severe); R78.81 Bacteremia; I82.611 Acute embolism and thrombosis of superficial veins of right upper extremity; R29.6 Repeated falls; N39.0 Urinary tract infection, site not specified; L89.159 Pressure ulcer of sacral region, unspecified stage; N18.3 Chronic kidney disease, stage 3 (moderate); F32.9 Major depressive disorder, single episode, unspecified; K21.9 Gastro-esophageal reflux disease without esophagitis; M10.9 Gout, unspecified; H40.9 Unspecified glaucoma; M19.90 Unspecified osteoarthritis, unspecified site; D64.9 Anemia, unspecified; E78.5 Hyperlipidemia, unspecified; I12.9 Hypertensive chronic kidney disease with stage 1 through stage 4 chronic kidney disease, or unspecified chronic kidney disease; M11.20 Other chondrocalcinosis, unspecified site; M17.10 Unilateral primary osteoarthritis, unspecified knee; M54.10 Radiculopathy, site unspecified; Y84.6 Urinary catheterization as the cause of abnormal reaction of the patient, or of later complication, without mention of misadventure at the time of the procedure; Z90.710 Acquired absence of both cervix and uterus; Z66 Do not resuscitate; Z75.1 Person awaiting admission to adequate facility elsewhere; Z82.49 Family history of ischemic heart disease and other diseases of the circulatory system; Y92.89 Other specified places as the place of occurrence of the external cause
CPT/HCPCS: 36415; 70450; 71045; 72131; 73562; 73700; 80048; 80053; 80202; 81001; 82565; 82962; 83605; 83735; 85014; 85018; 85025; 85610; 85730; 87040; 87077; 87081; 87086; 87088; 87186; 87205; 93005; 93971; 94761; 96361; 96365; 97110; 97116; 97163; 97530; A6257; G0378; J0696; J3490; J7060